=== PATIENT | male | born 1960 | race Caucasian/White ===

== ENCOUNTER 2023-02-09 02:26 | Emergency (ER) | payer OTHER ==
[~2023-02-09] VITALS: Ht 170.2 cm; Wt 79.4 kg
[2023-02-09 02:33] VITALS: BP 127/81
--- NOTE | 2023-02-09 02:40 | NUR ---
PT TO BED 7
--- NOTE | 2023-02-09 02:45 | NUR ---
DR. LARSON AT BEDSIDE.
[2023-02-09] MEDS ORDERED: KETOROLAC 60 MG/2 ML VIAL IM ONE (02:55)
[2023-02-09] MEDS ORDERED: IBUP-2213 PO (02:59)
[2023-02-09] MEDS ORDERED: PRED20TA5 PO (02:59)
[2023-02-09 03:25] VITALS: BP 127/81
--- NOTE | 2023-02-09 03:25 | NUR ---
Patient discharged with v/s stable. Written and verbal after care instructions given and explained. Patient alert, oriented and verbalized understanding of instructions. Ambulatory with to car. All questions addressed prior to discharge. ID band removed. Patient advised to follow up with PMD. Rx of PREDNISONE, MOTRIN given. Patient educated on indication of medication including possible reaction and side effects. Opportunity to ask questions provided and answered.
== END 2023-02-09 03:25 | disposition home or self-care (01) ==
LOC: MED 02:26
DX: J02.9 Acute pharyngitis, unspecified (principal); R05.9 Cough, unspecified; R09.89 Other specified symptoms and signs involving the circulatory and respiratory systems
CPT/HCPCS: 99283